=== PATIENT | female | born 1955 ===

== ENCOUNTER 2024-01-22 10:10 | Outpatient (AMB) | payer MEDICARE, OTHER, SELFPAY ==
--- NOTE | 2024-01-22 10:10 | MHC.OFFWIV ---
Intake Vital Signs 01/22/24 10:11 Height 5 ft 2 in Weight 147 lb BMI 26.9 BP 132/84 Blood Pressure Location Lt brachial Position Sitting Pulse 77 Pulse Source Pulse Oximeter Temp 98.3 F Temp Source Oral Pulse Oximetry (%) 97 Oxygen Delivery Method Room Air Intake Visit Reasons: [employer]- Sore throat, glands are swollen and sore Intake Note: pt c/o sore throat and swollen glands. Started this morning Patient Tobacco Use Status: Never used Tobacco Allergies No Known Allergies Allergy (Verified 01/22/24 10:14) Do you need a note to return to daycare/school/sports/work: No HPI [employer]- Sore throat, glands are swollen and sore HPI Details 68 year old female patient [place] today with report of sore throat and swollen glands since this morning. States she had cold symptoms and body aches last week, which have mostly resolved. Her granddaughter, whom she cares for daily, was recently diagnosed with Strep pharyngitis, and other granddaughter is also symptomatic. She denies any fever. Home Covid tests were negative. [facility] Social History Patient Tobacco Use Status: Never used Tobacco Review of Systems Const All systems reviewed & are unremarkable except as noted in HPI and below Physical Exam Vital Signs: Last Vital Signs Temp 98.3 F 01/22/24 10:11 Pulse 77 01/22/24 10:11 BP 132/84 01/22/24 10:11 Pulse Ox 97 01/22/24 10:11 Oxygen Delivery Method Room Air 01/22/24 10:11 BMI result Body Mass Index 26.9 Const General: cooperative HEENT Head: Yes normal to inspection Ears: hearing grossly normal bilaterally General nose exam: Normal external nose present Face and sinus: Yes normal facial exam Throat: Yes posterior oropharynx abnormal (erythema) and Yes tonsils absent Neck Neck: Yes no lymphadenopathy Resp Effort & Inspection: normal respiratory effort Auscultation: clear to auscultation bilaterally Cardio Rate: regular rate Rhythm: regular rhythm Skin General skin exam: no rashes or lesions noted Extrem General: Yes capillary refill normal and Yes no clubbing, cyanosis or edema Psych Appearance: grossly normal Mental Status: mental status grossly normal Speech and movement: Normal speech and movement present Results AMB Rapid Strep AMB Rapid Strep Negative Last Edit by Levon Hoffman CMA on 01/22/24 10:21 Results Reviewed Results Reviewed: Laboratory Last Values Strep Scn Rapid Clinic Negative 01/22/24 10:17 Assessment & Plan Assessment & Plan (1) Pharyngitis: Code(s): J02.9 - Acute pharyngitis, unspecified Qualifiers: Pharyngitis/tonsillitis etiology: unspecified etiology Qualified Code(s): J02.9 - Acute pharyngitis, unspecified Plan: Positive close exposure to family with positive strep. Will treat with Pen V 10 days. Reviewed indications, use, possible s/e of medication. Advised to change toothbrush and wash pillowcases. Advised Tylenol/Motrin and oral spray/lozenges as needed for any discomfort. If she does not improve with treatment she can return to the clinic for further evaluation. She agrees to plan. Orders: Orders AMB Rapid Strep Screen Today Z13.9 - Encounter for screening, unspecified Medications: New penicillin V potassium Take one tab by mouth twice a day for 10 days. 500 mg PO BID 10 days 20 tabs 0RF J02.0 - Streptococcal pharyngitis Coding Level of Care Code Est Pt Level 4 (45445) Diagnoses Pharyngitis, unspecified etiology J02.9 Pharyngitis/tonsillitis etiology: unspecified etiology
[2024-01-22 10:11] VITALS: BP 132/84; PULSE 77; TEMP 36.8; O2SAT 97; BMI 26.9
== END 2024-01-22 10:46 | disposition home or self-care (01) ==
PROVIDERS: PCP Nurse Practitioner Family; Visit Provider Nurse Practitioner Family
DX: J02.9 Acute pharyngitis, unspecified (principal); Z13.9 Encounter for screening, unspecified
CPT/HCPCS: 87880; 99214

== ENCOUNTER 2025-03-09 13:05 | Outpatient (AMB) | payer MEDICARE, OTHER, SELFPAY ==
--- NOTE | 2025-03-09 13:09 | AM.OFFWIN_ITS ---
Intake Vital Signs 03/09/25 13:10 Height 5 ft 2 in Weight 150 lb BMI 27.4 BP 120/80 Blood Pressure Location Lt brachial Position Sitting Respiration 16 Pulse 97 Pulse Source Pulse Oximeter Temp 98.0 F Temp Source Oral Pulse Oximetry (%) 98 Oxygen Delivery Method Room Air Intake Visit Reasons: EP LT ear pain Intake Note: Pt is here today for Lt ear pain x2wks Patient Tobacco Use Status: Never used Tobacco Supervisor Histology Required: No Allergies No Known Allergies Allergy (Verified 03/09/25 13:13) Medication List - Last Reconciled 03/09/25 by Hannah David NP cetirizine (Zyrtec) TAKE ONE TABLET TWICE A DAY FOR 10 DAYS, THEN ONE TABLET ONCE DAILY. fluticasone furoate 27.5 mcg/actuation (Flonase Sensimist) 1 spray intranasal DAILY lisinopril 20 mg PO DAILY HPI HPI Comments History of Present Illness Details 69 y/o Female patient [facility] with c/o Left Ear pain for over a week. She was recently on a Plane for a Vacation - returned 2 weeks ago. She first noticed left Ear blockage then turned into Pain few days later. Denies any Ear Discharge. Denies headaches, dizziness or hearing changes. She has h/o Seasonal allergies and she does not take any medications. [facility] Medical History (Updated 03/09/25 @ 13:36 by Hannha David NP) Allergic rhinitis Social History Patient Tobacco Use Status: Never used Tobacco Review of Systems Const All systems reviewed & are unremarkable except as noted in HPI and below Physical Exam Vital Signs: Last Vital Signs Temp 98.0 F 03/09/25 13:10 Pulse 97 03/09/25 13:10 Resp 16 03/09/25 13:10 BP 120/80 03/09/25 13:10 Pulse Ox 98 03/09/25 13:10 Oxygen Delivery Method Room Air 03/09/25 13:10 BMI result Body Mass Index 27.4 Const General: no acute distress Nutritional Appearance: well nourished Orientation/consciousness: patient oriented x3 HEENT Head: Yes normocephalic Ears: external ears normal and TM abnormal bulging bilateral and with fluid behind the TM bilateral; not perforated and not retracted General nose exam: Normal external nose present and Abnormal mucous membranes and turbinates present pale Face and sinus: Yes sinuses nontender Mouth: moist mucous membranes Throat: Yes uvula midline Resp Effort & Inspection: normal respiratory effort and able to speak in complete sentences Auscultation: clear to auscultation bilaterally, no crackles, no rales, no rhonchi and no wheezes Cardio Heart sounds: S1 normal heart sound present and S2 normal heart sound present Neuro General: patient oriented x3 Assessment & Plan Assessment & Plan (1) Allergic rhinitis: Code(s): J30.9 - Allergic rhinitis, unspecified Qualifiers: Allergic rhinitis trigger: unspecified Allergic rhinitis seasonality: seasonal Qualified Code(s): J30.2 - Other seasonal allergic rhinitis Plan: B/L Ear Exam clean and intact. Ordered Zyrtec BID for few days, then One Daily. Ordered Flonase Nasal [place]. F/U with PCP Medications: New cetirizine (Zyrtec) TAKE ONE TABLET TWICE A DAY FOR 10 DAYS, THEN ONE TABLET ONCE DAILY. 90 tabs 0RF J30.2 - Other seasonal allergic rhinitis fluticasone furoate 27.5 mcg/actuation (Flonase Sensimist) into each nostril 1 spray intranasal DAILY 27.3 mL 0RF J30.2 - Other seasonal allergic rhinitis Coding Level of Care Code Est Pt Level 4 (92429) Diagnoses Seasonal allergic rhinitis, unspecified trigger J30.2 Allergic rhinitis trigger: unspecified Allergic rhinitis seasonality: seasonal Time Spent (min) 20
[2025-03-09 13:10] VITALS: BP 120/80; PULSE 97; RESP 16; TEMP 36.7; O2SAT 98; BMI 27.4
== END 2025-03-09 13:48 | disposition home or self-care (01) ==
PROVIDERS: PCP Nurse Practitioner Family; Visit Provider Nurse Practitioner Family
DX: J30.2 Other seasonal allergic rhinitis (principal)

== ENCOUNTER → 2025-03-09 13:05 | Outpatient (BNVA) | payer MEDICARE, OTHER, SELFPAY | PROVIDERS: PCP Nurse Practitioner Family; Visit Provider Nurse Practitioner Family | DX: J30.2 Other seasonal allergic rhinitis (principal) | CPT/HCPCS: 99212 ==